=== PATIENT | male | born 1955 | race Caucasian/White ===

== ENCOUNTER → 2024-07-27 | Outpatient (CLI) | payer MEDICARE ==
--- NOTE | 2024-07-27 11:39 | CTL ---
EXAMINATION TYPE: CT Low Dose Lung DATE OF EXAM: 07/27/2024 9:24 AM COMPARISON: None. 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 TECHNIQUE: Multiple axial non-contrast scans were obtained from approximately the lung apices through the upper abdomen. Coronal and sagittal reformatted images were obtained. Low dose technique was uti lized. MIP were created on a separate workstation and submitted for review. CT DLP: 91.4 mGycm, Automated exposure control for dose reduction was used. CT Contrast: Contrast used: None Oral contrast used: None FINDINGS: Lack of intravenous contrast and low dose technique limits the evaluation of the vascular and soft ti ssue structures. LUNGS: No evidence of pulmonary fibrosis. No evidence of focal consolidation, pneumothorax or pleural effusion. Centrilobular emphysema changes. Left lateral chest calcified pleura. Nodules: RUL: None. RML: None. RLL: None. DESHAWN: None. LLL: None. AIRWAY: Patent and unremarkable. HEART: Size within normal limits. MEDIASTINUM: No gross evidence of adenopathy. VASCULATURE: No aortic aneurysm. MUSCULOSKELETAL: No acute osseous abnormalities, mild scoliosis changes to the midthoracic spine with dextroscoliosis. SOFT TISSUES/LYMPH NODES: Unremarkable. LOWER NECK: No significant findings. UPPER ABDOMEN: No significant findings. IMPRESSION: 1. No clinically significant pulmonary nodules. 2. Mild emphysema. 3. Calcification along the pleura most pronounced left upper lung apex laterally. Correlate for histo ry of asbestos exposure. CT LUNG RAD AND CT CHEST RECOMMENDATION: Lung-Rad 2 Benign Appearance or Behavior: Continue annual sc reening with LDCT in 12 months. S Modifier (other clinically significant findings): None Recommend smoking cessation (if current smoker), or continuation of smoking cessation (if prior smoke r). Annual screening for lung cancer with low-dose computed tomography is recommended in adults ages 55 to 77 years who have a 30 pack-year smoking history and currently smoke or have quit within the pa st 15 years. Screening should be discontinued once a person has not smoked for 15 years or develops a health problem that substantially limits life expectancy or the ability or willingness to have curat rae lung surgery. Lung rads 2022 [email or web address] [email or web address], , 07/27/2024 11:37 AM
== END | disposition home or self-care (01) ==
LOC: RADCTMAIN 08:49
PROVIDERS: ATTEND Family Medicine
DX: Z12.2 Encounter for screening for malignant neoplasm of respiratory organs (principal); J43.2 Centrilobular emphysema; R91.8 Other nonspecific abnormal finding of lung field; Z87.891 Personal history of nicotine dependence
CPT/HCPCS: 71271